=== PATIENT | female | born 2000 | race Caucasian/White ===

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

== ENCOUNTER 2021-09-13 02:47 | Emergency (ER) | payer MEDICAID ==
[~2021-09-13] VITALS: Ht 160 cm; Wt 49.5 kg
[2021-09-13] MEDS ORDERED: ACETAMINOPHEN 325MG TABLET PO STA (05:55)
[2021-09-13 06:32] LABS: BASOPHILS % 0.7 % (0.0-2.0); EOSINOPHILS % 3.5 % (0.0-5.0); HEMOGLOBIN. 12.6 g/dL (12.0-16.0); LYMPHOCYTES % 34.2 % (20.0-50.0); MEAN CORPUSCULAR HEMOGLOBIN 30.9 pg (28.0-32.0); MEAN PLATELET VOLUME 8.5 fl (7.4-10.4); MONOCYTES % 6.2 % (2.0-8.0); NEUTROPHILS % 55.4 % (40.0-76.0); PLATELET 349 x1000/uL (130-400); RED BLOOD CELL COUNT 4.06 mill/uL (4.2-5.4); RED CELL DISTRIBUTION WIDTH 13.6 % (11.6-14.6)
[2021-09-13 06:42] LABS: CHLORIDE 105 mEq/L (98-107)
[2021-09-13 06:49] LABS: PHOSPHORUS 4.2 mg/dL (2.5-4.9)
[2021-09-13] MEDS ORDERED: KETOROLAC 15MG/ML VIAL IV ONE (07:00)
[2021-09-13] MEDS ORDERED: SODIUM CHLORIDE 0.9% 1,000 ML IV ONE (07:00)
[2021-09-13 08:30] VITALS: BP 100/55
== END 2021-09-13 08:43 | disposition home or self-care (01) ==
LOC: ER 02:47
DX: M79.10 Myalgia, unspecified site (principal); M06.9 Rheumatoid arthritis, unspecified; D68.61 Antiphospholipid syndrome; J45.909 Unspecified asthma, uncomplicated; Z88.8 Allergy status to other drugs, medicaments and biological substances; Z91.013 Allergy to seafood
CPT/HCPCS: 36415; 80053; 81025; 83735; 84100; 85025; 96361; 96374; 99283; J1885; J7030

== ENCOUNTER 2022-06-09 00:22 | Emergency (ER) | payer MEDICAID ==
[~2022-06-09] VITALS: Ht 160 cm; Wt 48.0 kg
[2022-06-09 01:16] VITALS: BP 114/66
== END 2022-06-09 08:02 | disposition left against medical advice (07) ==
LOC: ER 00:22
DX: Z53.21 Procedure and treatment not carried out due to patient leaving prior to being seen by health care provider (principal)